=== PATIENT | male | born 1950 | race Caucasian/White ===

== ENCOUNTER 2025-05-17 06:03 | Inpatient (IN) | payer MEDICARE, OTHER, SELFPAY ==
[2025-05-17] VITALS (12 sets, daily range): BP systolic 89–165; BP diastolic 52–92; BMI 19.5; BMI 20.1; BMI 16.5
[2025-05-17 05:05] LABS: Hematocrit 33.1 % (39.0-52.0); Hemoglobin 11.0 g/dL (13.0-18.0); Mean Corp Hgb Conc. 33.2 g/dL (33.0-37.0); Mean Corpuscular Volume 86.0 fL (80.0-94.0); Nucleated Red Blood Cells % 0 % (-); Platelet Count 182 10^3/uL (130-400); Red Cell Dist. Width 13.5 % (11.5-14.5)
--- NOTE | 2025-05-17 05:08 | HPS.HSE ---
Family Physician
-
Family Physician:
Chief Complaint
-
Shortness of breath
History of Present Illness
This is a 75-year-old male with past medical history significant for COPD not on home O2, history of renal stone embolism, dysphagia of the oropharyngeal phase, mild dementia, hyperlipidemia, gait unsteadiness, history of Churg-Alexey, recent
admission at outside hospital with discharge date of 04/09 for acute respiratory failure with hypoxia and pneumonia who now comes to the emergency department with shortness of breath and hypoxia.
According to patient and [facility] records he had been coughing for about 3 days. He appeared to have initially some upper respiratory symptoms including some runny nose and some sore throat. He said he was tested for COVID at the outside
[facility] and it was negative. He did have some wheezing and some shortness of breath. He denies having any fevers or chills. He denies any lower extremity swelling or calf tenderness. He denies having any chest pain nausea or vomiting. He
denies any recent aspiration events. He does report multiple members of his facility with respiratory illnesses recently. He tells me that he was started on antibiotics yesterday and records indicated that he was started on cefuroxime and
Zithromax at 5 PM.
Tonight he called 911 himself because he was complaining of shortness of breath. Had appeared to be in acute respiratory distress. EMS arrived and initially patient was satting 83% on room air. He was given a DuoNeb treatment with oxygenation
improving to 96% but is currently still hypoxic to about 90% on 2 L.
In the emergency department he is afebrile, blood pressure was 140/80 with a pulse of 93 and oxygen saturation of 90% on 2 L. Respiratory rate was 20. ECG shows a normal sinus rhythm at a rate of 94 without any acute ischemic changes. Chest x-ray
show is without any acute infiltrates. CBC was mostly unremarkable with a white count of 9 hemoglobin 11 bed count of 182. Chemistries are unremarkable
Medical History
Past Medical History
Past Medical History: Reports COPD (Not on home O2), Dementia (Mild with behavioral changes), GERD, HTN and Hypercholesterolemia
Additional Past Medical History:
Churg-Alexey
Adjustment disorder with anxiety and depressed mood
Generalized weakness
Past Surgical History: Reports Other
Social History
Tobacco: Former Smoker (Smoked cigarettes from age 15 to age 30)
Alcohol: None
Drug: None
Personal:
Living: [facility]
Family History
Family History: Not pertinent
Allergies / Home Medications
Allergies reflects when Allergies were last updated in [facility].
Home Medications with original date entered in [facility]
Allergy/Medication List:
Allergies
Allergy/AdvReac Type Severity Reaction Status Date / Time
ciprofloxacin Allergy Unknown Unknown Verified 05/17/25 05:08
haloperidol (From Haldol) Allergy Unknown Unknown Verified 05/17/25 05:08
prednisone Allergy Unknown Unknown Verified 05/17/25 05:08
Quetiapine 50 mg tablet, 50 mg p.o. AM and at bedtime
Melatonin 3 mg tablets, 3 mg p.o. at bedtime as needed insomnia
Oxycodone 10 mg tablets, 10 mg p.o. every 8 hours as needed pain
Lorazepam 0.5 mg tablets, 0.5 mg p.o. nightly as needed anxiety
Breztri Aero sphere inhalation aerosol 160 � 9 � 4 0.8 mcg per ACT, 2 inhalation, inhaled orally twice daily
Aspirin 81 mg tablets, 81 mg p.o. daily
Amlodipine 5 mg tablets, 5 mg p.o. daily
Albuterol sulfate nebulization solution 2.5 mg x 3 mL. 1 inhalation orally via nebulizer every 4 hours as needed
Fexo XR 150 mg capsule extended release, 150 mg p.o. daily
Review of Systems
-
History Source: Patient
Constitutional: Reports No Symptoms
EENT: Reports No Symptoms
Respiratory: Reports Cough and Trouble Breathing
Cardiac: Denies Chest Pain
Abdomen/GI: Reports No Symptoms
: Reports No Symptoms
Musculoskeletal: Reports No Symptoms
Skin: Reports No Symptoms
Neurological: Reports No Symptoms
Endocrine: Reports No Symptoms
Hematologic/Lymphatic: Reports No Symptoms
Psych: Reports No Symptoms
Physical Exam
Vital Signs
Vital Signs
Temp Pulse Resp BP Pulse Ox
97.9 F 95 20 139/83 90
05/17/25 04:27 05/17/25 04:53 05/17/25 04:53 05/17/25 04:27 05/17/25 04:27
Physical Exam
General: Well Developed and Respiratory Distress
HEENT: NormoCephalic, Moist mucous membranes, Atraumatic and Oxygen
Respiratory: Clear, Wheezes (Coarse wheezes), Rhonchi, Non Labored Respirations and Clear to Percussion; No Accessory Resp Muscle Use
Cardiac: S1/S2 and Regular Rhythm; No Murmur or Rub
GI: Soft, Non Tender, Non Distended and Normal Bowel Sounds; No Organomegaly
Rectal: Deferred by Provider
Genito-urinary: Deferred by me
Musculoskeletal: No Clubbing, No Cyanosis and No Edema
Skin: No Rash
Neuro: Alert, Oriented (Oriented to person place and year) and Nonfocal/grossly intact
Hematologic/Lymphatic: No Lymphadenopathy
Psych: Calm
Laboratory Results
-
05/17/25 04:47
Data Reviewed
-
Diagnostic Radiology: Image Personally Visualized and interpreted
Medical Tests (Nuc Med, Echo, EKG etc): Image Personally Visualized and interpreted
Lab Data: Labs Reviewed by me
Old Records: Reviewed
Impression/Plan
-
IMPRESSION:
75-year-old with history of COPD,, prior history of Churg-Alexey, dementia, dysphagia, prior history of DVT presenting to the emergency department with worsening shortness of breath and found to be hypoxic after approximately 2 to 3 days of cough
which is currently nonproductive. He improved transiently with neb treatments. Examination shows coarse bilateral wheezes with slightly increased work of breathing.
Chest x-ray
Patient was apparently admitted to outside hospital in March for hypoxic respiratory failure. It appears that he had a pneumonia at that time and has returned to [facility] since.
PLAN:
Hypoxic respiratory failure -No fevers, leukocytosis or consolidation to suspect pneumonia. Likely acute bronchitis in patient with emphysema and prior lung injury. No evidence of congestive heart failure and no prior history of such.
-Admit to [facility]
-Check COVID, check flu, d-dimer
-Patient started antibiotics already, continue with ceftriaxone and Zithromax
-would rather a short course of steroids but patient with unclear allergy/reaction to prednisone
-DuoNebs every 6 hours and every 3 hours as needed
-Oxygen to maintain sats greater than 90%
-Incentive spirometry
- pulmonary consult
-Requested records from [facility]
BNP elevation - Patient w/ indeterminate BNP levels. He has no pulmonary edema. No peripheral edema. BP well controlled and no prior cardiac hx.
- check echo
- will monitor for now with 1 dose of lasix 20mg iv and evaluate
Hypertension
- Continue home patient's amlodipine 5 daily
Dementia/depression anxiety
- Quetiapine 50 mg p.o. daily at at bedtime
� Effexor 150 mg p.o. daily
� Lorazepam 0.5 mg p.o. nightly as needed anxiety
Continue melatonin for insomnia
DVT prophylaxis�Lovenox subcu
CODE STATUS�DNR/DNI
[2025-05-17 05:20] LABS: INR 1.09; PT 14.7 Sec (11.4-14.6)
[2025-05-17 05:21] LABS: APTT 29.5 Sec (23.4-35.0)
[2025-05-17] MEDS: DUONEB 3 ML INH ×5 (05:27→19:21)
[2025-05-17 05:34] LABS: ALT (SGPT) 15 U/L (0-50); AST (SGOT) 28 U/L (17-59); Albumin 4.3 g/dl (3.5-5.0); Alkaline Phosphatase 88 U/L (38-126); Blood Urea Nitrogen 30 mg/dl (9-20); Calcium 9.4 mg/dl (8.4-10.2); Carbon Dioxide 23 mmol/L (22-30); Chloride 109 mmol/L (98-107); Estimated Creatinine Clearance 62 ml/min; Glucose 103 mg/dl (70-99); Lipase 56 U/L (23-300); Potassium 4.2 mmol/L (3.5-5.1); Sodium 140 mmol/L (135-145); Total Protein 6.9 g/dl (6.3-8.2); eGFR > 60.00
[2025-05-17 05:45] LABS: Troponin I < 0.012 ng/ml
--- NOTE | 2025-05-17 05:56 | ED.GENMED ---
History of Present Illness
General
Chief Complaint: Breathing Problem
Source: patient and ambulance crew
Time Seen by Provider: 05/17/25 04:31
Nursing documentation reviewed up to this point in time: agreed with
History of Present Illness
History of Present Illness:
Note:
CHIEF COMPLAINT(S)
Difficulty breathing
HISTORY OF PRESENT ILLNESS
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 He was identified to have difficulty in breathing and a suspected
respiratory infection diagnosed yesterday. The diagnosis was made by a resident physician at his current rehab facility. The patient received a single dose of antibiotics for the infection. Prior to hospital transfer, his oxygen saturation was
recorded at 83% on room air, indicating significant hypoxemia. Emergency Medical Services (EMS) intervened with a nebulized albuterol and ipratropium bromide treatment, improving his oxygen saturation to 96-99%.
PAST MEDICAL AND SURIGICAL HISTORY
History of deep vein thrombosis, dementia, phasia, and past episodes of pneumonia.
EXTERNAL RECORDS REVIEWED
References were made to recent care at [facility] but specific records were not detailed.
PHYSICAL EXAM
General: Alert, no acute distress.
Skin: Warm, dry.
Head: Normocephalic, atraumatic.
Neck: Supple, trachea midline.
Eye, Ears, Nose, and Throat: Patient reports a past significant ear infection treated with intratympanic steroids.
Cardiovascular: Normal peripheral perfusion, No edema.
Respiratory: Respirations are non-labored.
Gastrointestinal: Abdomen nondistended.
Back: Normal range of motion, Normal alignment.
Musculoskeletal: Normal range of motion, normal strength.
Neurological: Alert and oriented to person, place, time, and situation, No focal neurological deficit observed.
Psychiatric: Cooperative, appropriate mood & affect.
PROBLEM LIST
Acute:
1. Difficulty breathing with suspected respiratory infection
2. Hypoxemia
3. Wheezing
Chronic:
1. Dementia
2. Deep vein thrombosis
3. History of recurrent falls
4. Phasia
PLAN
1. Continue the current antibiotic regimen for the respiratory infection.
2. Monitor oxygen saturation levels and administer oxygen therapy as needed to maintain saturation above 92%.
3. Further respiratory treatments with nebulized bronchodilators (albuterol and ipratropium bromide) as required.
4. Neurological assessment due to the history of falls and dementia-related challenges.
5. Coordinate with the rehabilitation facility for continuity of care post discharge.
DIFFERENTIAL DIAGNOSIS
The Differential Diagnosis includes, in no particular order and is not limited to:
1. Acute respiratory infection
2. Chronic obstructive pulmonary disease exacerbation
3. Congestive heart failure
4. Pulmonary embolism
5. Aspiration pneumonia
6. Dementia-related aspiration
7. Pneumothorax
8. Fluid overload
9. Cardiomyopathy
10. Bronchitis
Disposition:
SUMMARY OF ENCOUNTER
The patient is a 75-year-old male seen in the emergency department for difficulty breathing, with a history of dementia. He arrived with EMS who reported an oxygen saturation of 83% on room air. Oxygen therapy was initiated, which improved his
saturation levels.
PLAN
1. Continue oxygen therapy to maintain oxygen saturation levels above 92%.
2. Continue antibiotic treatment for the suspected respiratory infection.
3. Administer nebulized bronchodilator treatments as needed to manage breathing difficulties.
4. Monitor vital signs and respiratory status closely.
MEDICATION RECONCILIATION
1. Oxygen therapy initiated to improve oxygen saturation levels.
2. Continue the current antibiotic regimen for treatment of the respiratory infection.
MEDICAL DECISION MAKING
- Number and Complexity of Problems Addressed:
Chronic conditions affecting care include dementia, deep vein thrombosis, history of recurrent falls, and phasia.
- Data:
Category 1: Tests and documents
Non-emergency department records reviewed: Reviewed patients EMS oxygen saturation records.
Category 2: Assessment requiring an independent historian(s)
Clinical information was obtained through EMS records.
DIAGNOSIS
1. Acute Respiratory Infection (J22)
2. Hypoxemia (R09.02)
3. Dementia (F03.90)
Review of Systems
Review of Systems
Unable to obtain full review of systems at this time due to: dementia
All Other Systems: ROS reviewed and negative except as documented in HPI and ROS
: Reports no symptoms
Phy Exam
Physical Exam
Physical Exam:
.
Scores
Heart Failure Risk
Heart Failure Risk Score: Not Applicable
Course
Orders/Labs/Results
Orders:
Orders
05/17/25 04:33
Electrocardiogram (*1) Urgent
Reason for Study: Other
Other Reason for Exam: Respiratory Distress
Cardiac Monitoring- Treatment ONCE
EKG- Treatment ONCE
IV Insert/Care/Rem.- Treatment PRN
Ipratropium/Albuterol Sulfate [Duoneb] 3 ml INH R NOW ONE
CR Chest - 2 Views Urgent
Comment:
Reason For Exam: respiratory distress
O2 Therapy [RESP] Urgent
Titrate/Wean O2 to maintain O2 sat greater than (%): 93
Special Instructions: TO MAINTAIN CONTINUOUS O2 SATS >/= 93%
Pulse Ox/cont/shift [RESP] Urgent
Quantity: 1
Special Instructions: continuous pulse ox
05/17/25 04:47
C-Reactive Protein Urgent
Comment: ADD ON
Complete Blood Count/With Diff Urgent
Comprehensive Metabolic Panel Urgent
Erythrocyte Sed Rate Urgent
Comment: ADD ON
Lipase Urgent
NT-proBNP Urgent
PTT Urgent
Prothrombin Time Urgent
Troponin I Urgent
05/17/25 05:33
CefTRIAXone [Rocephin] 1,000 mg IV NOW STA
05/17/25 05:36
Admit/Transfer Patient As Directed
Co-Sign Provider:
Level of Care: Inpatient admission
Assign to:: Medical/Surgical
Physician / Group: [facility]
Diagnosis: bronchitis/COPD exacerbation
Reason for Hospitalization: hypoxia
Expected length of stay greater than two midnights?: Yes
ELOS- Estimated Length of Stay in days: 2
I certify the patient meets the requirements for IP care: Yes
PRN Pain Medication Management As Directed
May give lesser potent ordered pain med per pt: Yes
preference::
Protocol:: Medication orders for pain may be administered in a
manner that supports deferring to patient preference
when the pt is:
- Requesting an ordered lesser potent pain medication.
Least to most potent pain medications are defined
as: acetaminophen < NSAID < tramadol < opioids
(morphine, oxycodone, hydromorphone).
- Requesting a lesser dose of the same medication IF
ORDERED.
- Requesting a less intrusive route of administration
if both routes are prescribed by the provider (PO <
IV).
05/17/25 05:37
Code Status As Directed
Resuscitation Status: Do not resuscitate
Based on pt advanced directive or healthcare POA form: Yes
05/17/25 05:38
DNR Bracelet Application ONCE
05/17/25 05:39
Sterile Water [Sterile Water For Injection] 10 ml IV NOW STA
05/17/25 05:50
Furosemide [Lasix] 20 mg IV NOW STA
05/17/25 05:51
COVID-19 Antigen Stat
Source: Nasal Swab
D-Dimer Stat
Influenza A+B Rapid Molecular Stat
JULIA Source: Nasal Swab
Specimen Description:
05/17/25 Breakfast
Regular
At Your Request: Limited, Supplies Packer Required
05/17/25 07:58
Ipratropium/Albuterol Sulfate [Duoneb] 3 ml INH R Q3HPRN PRN
05/17/25 08:00
Ipratropium/Albuterol Sulfate [Duoneb] 3 ml INH R QID
05/17/25 08:55
Acetaminophen [Tylenol] 650 mg PO Q4HPRN PRN
Bisacodyl [Dulcolax] 10 mg RECTAL [id number] PRN
Lorazepam [Ativan] 0.5 mg PO HS PRN
05/17/25 08:55
Echo 2D MMode Color/Doppler Routine
Reason for Study: mod low suspicion for CHF, eval EF.
Consult Notification Routine
Specialty to Notify: Pulmonary
Date consulting provider notified: 05/17/25
Time consulting provider notified: 16:52
Notified:: Provider
Comment: Dr. Lea previously notified, see consultation report
PULMONARY CONSULT Routine
Consulting Provider: Aleksander Aguiar
Was physician already notified: No
Reason for consult: COPD exacerbation vs acute bronchitis. Allergy to steroids
Activity As Directed
Activity Level: Out of Bed-Early Mobility
Intake/ Output As Directed
Frequency: Per unit guidelines
Vital Signs As Directed
Frequency: Per unit guidelines
Pt Eval And Treat Routine
Activity Level: With Assistance
DX Deep Vein Thrombosis Video Routine
05/17/25 09:03
Urinalysis Reflex To Culture Urgent
Date Specimen was Collected: 05/17/25
Time Specimen was Collected: 08:56
05/17/25 11:36
Oxycodone [Roxicodone] 10 mg PO Q8HPRN PRN
05/17/25 11:37
Magnesium Hydroxide [Milk of Magnesia] 30 ml PO HSPRN PRN
05/17/25 11:45
Budesonide/Formoterol 160/4.5 [Symbicort 160/4.5 Mcg Inhaler] 2 puff INH R BID
05/17/25 12:00
Amlodipine [Norvasc] 5 mg PO DAILY
Aspirin Chewable [Low Strength Aspirin] 81 mg PO DAILY
Azithromycin [Zithromax] 500 mg PO DAILY
Docusate W/Senna [Senokot-S] 2 tablet PO BID
Guaifenesin [Mucinex] 600 mg PO Q12
Polyethylene Glycol Powder [Miralax] 17 grams PO DAILY
Quetiapine Fumarate [Seroquel] 50 mg PO DAILY
Venlafaxine Extended Release [Effexor Xr] 150 mg PO DAILY
05/17/25 18:00
Enoxaparin Sodium [Lovenox] 40 mg SC QPM
05/17/25 22:00
Melatonin 3 mg PO HS
Quetiapine Fumarate [Seroquel] 50 mg PO HS
05/18/25 08:00
CefTRIAXone [Rocephin] 1,000 mg IV Q24H
Abnormal Lab Results
05/17/25
04:47
RBC 3.85 L 10^6/uL
(4.70-6.10)
Hgb 11.0 L g/dL
(13.0-18.0)
Hct 33.1 L %
(39.0-52.0)
Absolute Lymphs (auto) 1.1 L 10^3/uL
(1.2-3.4)
Absolute Eos (auto) 1.3 H 10^3/uL
(0-0.7)
Lymphocytes % 11.8 L %
(20.5-51.1)
Eosinophils % 14.2 H %
(0-6)
ESR 52 H mm/hour
(0-20)
PT 14.7 H Sec
(11.4-14.6)
Chloride 109 H mmol/L
(98-107)
BUN 30 H mg/dl
(9-20)
Glucose 103 H mg/dl
(70-99)
C-Reactive Protein 27.10 H mg/L
(0.0-10.00)
05/17/25 04:47
05/17/25 04:47
Vital Signs
Initial and Last Documented VS:
Initial Vital Signs
Temp Pulse Resp BP Pulse Ox
97.9 F 93 20 139/83 90
05/17/25 04:27 05/17/25 04:27 05/17/25 04:27 05/17/25 04:27 05/17/25 04:27
Last Documented Vital Signs
Temp Pulse Resp BP Pulse Ox
97.9 F 99 18 143/95 95
05/19/25 04:10 05/19/25 04:10 05/19/25 04:10 05/19/25 04:10 05/19/25 04:10
*Pulse Oximetry
SaO2: 96
Oxygen Mode of Delivery: Room air
Patient hypoxic: no
*Critical Care Note
Total Time (30-74mins, 75-104mins- exclusive of procedures): Not Applicable
ED Attending Note
-
Portions of this chart may have been created with voice recognition software.� Occasional wrong word or��sound alike� substitutions may have occurred due to the inherent limitations of voice recognition software.
Discharge Plan
Interventions
Interventions:
*Risk Screen - Suicide Last Done: 05/17/25 04:40
*General Assessment Last Done: 05/17/25 04:40
*Neglect/Abuse Screening Last Done: 05/17/25 04:40
*ED- Fall Risk Assessment Last Done: 05/17/25 04:40
*ED COVID-19 Vaccine History Last Done: 05/17/25 04:40
*Nursing Disposition Last Done: 05/17/25 16:32
ED- Cardiac Assessment Last Done: 05/17/25 05:41
ED- Pulmonary Assessment Last Done: 05/17/25 07:09
[2025-05-17] MEDS: ROCEPHIN 1000 MG IV (06:21)
[2025-05-17] MEDS: STERILE WATER FOR INJECTION 10 ML IV (06:23)
[2025-05-17] MEDS: LASIX 20 MG IV (06:23)
[2025-05-17 06:31] LABS: COVID-19 Antigen Negative (Negative)
[2025-05-17 06:47] LABS: D-Dimer 0.47 ug/mlFEU (0.00-0.50)
--- NOTE | 2025-05-17 07:46 | PHANOTE ---
med rec note-called residential for missing medication list, awaiting fax
--- NOTE | 2025-05-17 09:06 | W.PN.HOSP.TC ---
Today's Communication/Plan
-
Echo.
CT chest PE protocol
Lower extremity Doppler
Empiric antibiotics
Decadron
Nebulizers
Assessment / Plan
Assessment / Plan
Impression
Acute on chronic hypoxic respiratory failure.
Essential hypertension.
Dementia/depression
Pulmonary cachexia BMI 19.5
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
Plan
Acute on chronic hypoxic respiratory failure
Differential diagnosis: COPD exacerbation, acute emphysematous bronchitis (x-ray with no focal infiltrates), thromboembolic disease (elevated pro CHF BNP with no prior history of CHF and reported history of lower extremity DVT, not on
anticoagulation on presentation), versus aspiration syndrome, less likely vasculitis, although patient with history of Churg-Alexey vasculitis.
Mild respiratory distress upon presentation with increased work of breathing
Exam with diffuse coarse rhonchi and wheezing
Chest x-ray with hyperinflation negative for cardiomegaly or pulmonary infiltrates.
ECG normal sinus rhythm
D-dimer within normal limits
Noted mild elevation of procedure BNP
COVID-negative
Echo
Lower extremity Doppler
CT chest PE protocol
Sed rate/CRP
Speech and swallow evaluation
Sputum culture if possible
Pulmonary consult
Empiric antibiotics ceftriaxone/Zithromax
Short acting bronchodilators
Start Decadron 10 mg now and 4 mg every 8 hours
PPI
Insulin basal bolus protocol with serial Accu-Cheks
Oxygen supplementation currently at 4 L (2 L at the baseline)
Essential hypertension.
Continue Norvasc
Dementia as per records.
Depression.
Continue Effexor, Seroquel, lorazepam, melatonin
CODE STATUS DNR
DVT prophylaxis Lovenox
Anticipated Discharge: 24 - 48 hours
Subjective/Interval History
-
Date of Service: May 17, 2025
Objective Data
-
Labs:
Laboratory Results
05/17/25
04:47
WBC 9.0
Hgb 11.0 L
Hct 33.1 L
Plt Count 182
PT 14.7 H
INR 1.09
APTT 29.5
Sodium 140
Potassium 4.2
Chloride 109 H
Carbon Dioxide 23
BUN 30 H
Creatinine 0.9
Glucose 103 H
Calcium 9.4
Total Bilirubin 0.5
AST 28
ALT 15
Alkaline Phosphatase 88
Vital Signs:
Vital Signs
Temp Pulse Resp BP Pulse Ox
97.9 F 89 24 145/83 96
05/17/25 04:27 05/17/25 07:00 05/17/25 07:00 05/17/25 07:00 05/17/25 06:00
Physical Exam
-
General: Well Developed and No Apparent Distress
HEENT: Normocephalic, Atraumatic and Moist Mucous Membranes
Respiratory: Wheezes and Rhonchi
Cardiac: Regular Rhythm and S1/S2; Negative Murmur, Rub or Gallop
GI: Soft, Nontender, Nondistended and Normal Bowel Sounds; Negative Organomegaly
Rectal: Deferred by Provider
Musculoskeletal: No Clubbing, No Cyanosis and No Edema
Skin: Negative Rash
Neuro: Nonfocal/Grossly Intact
--- NOTE | 2025-05-17 09:09 | CM ---
Addendum entered by Flores Ruelas 05/17/25 09:18:
Pharmacy verified: [facility] @ [address] [place] [id number]; .
Original Note:
Initial assessment completed w/ Stephanie from [facility]; Bed on Hold
PLOF: facility reported that patient is cognitively impaired but highly functional; needs some assistance w/ personal care; feeds and toilets self; no device w/ ambulation
Plan: return to [facility] when medically stable
[2025-05-17 09:18] LABS: Urine Character Clear (Clear)
[2025-05-17 09:28] LABS: Urine Red Blood Cell 0-2 /HPF (0-2); Urine Squamous Cell 0-2 /LPF (Few)
[2025-05-17 09:56] LABS: C-Reactive Protein 27.10 mg/L (0.0-10.00)
--- NOTE | 2025-05-17 10:13 | W.PN.UPDATE ---
Addendum entered and electronically signed by Aftab Haynes MD 05/17/25 10:16:
Correction will increase Lovenox dose to therapeutic pending CT PE protocol.
Plan is to transition to Eliquis eventually.
Original Note:
Update Note
Progress Note Update
Peripheral Doppler:
There is nonocclusive clot in the proximal and mid left femoral vein, and occlusive clot in the left distal femoral vein and popliteal vein. 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
No sonographic evidence for right lower extremity venous thrombosis.
CT PE protocol pending
Will initiate Eliquis with loading dose
[2025-05-17] MEDS: NORVASC 5 MG PO (12:04)
[2025-05-17] MEDS: PROTONIX 20 MG PO (12:04)
[2025-05-17] MEDS: SENOKOT-S 2 TABLET PO ×2 (12:04→20:37)
[2025-05-17] MEDS: SEROQUEL 50 MG PO ×2 (12:04→21:09)
[2025-05-17] MEDS: ZITHROMAX 500 MG PO (12:04)
[2025-05-17] MEDS: LOW STRENGTH ASPIRIN 81 MG PO (12:04)
[2025-05-17] MEDS: MUCINEX 600 MG PO ×2 (12:04→20:37)
[2025-05-17] MEDS: MIRALAX 17 GRAMS PO (12:05)
[2025-05-17] MEDS: DECADRON 10 MG IV (12:05)
[2025-05-17] MEDS: LOVENOX 60 MG SC (12:05)
[2025-05-17] MEDS: NOVOLOG FLEXPEN-LOW RESISTANCE SC (12:07)
[2025-05-17 12:08] LABS: Glucose - Point of Care 82 mg/dl (70-99)
[2025-05-17] MEDS: SYMBICORT 160/4.5 MCG INHALER INH (12:32)
[2025-05-17] MEDS: EFFEXOR XR 150 MG PO (12:50)
[2025-05-17] MEDS: ROXICODONE 10 MG PO ×2 (12:53→21:13)
--- NOTE | 2025-05-17 13:30 | PTOTSP ---
Speech Therapy Evaluation:
Pt with acute on chronic risk factors of dysphagia. Chronic risk factors include hx of COPD, Dementia, GERD, Dysphagia, and Churg-Alexey Syndrome. Acute risk factors include shortness of breath with chest CT showing bilateral patchy groundglass
opacities (inflammatory vs infectious). At bedside, oropharyngeal swallow appeared grossly functional, however cannot r/o pharyngeal component given above mentioned information.
Recommend:
1. Cautiously continue regular solids and thin liquids
2. Medications as tolerated
3. D/c oral diet if pt demonstrating s/sx of aspiration or if worsening in chest imaging/respiratory status
4. Strict aspiration and reflux precautions
5. SOLID WASTE ANALYST to follow to monitor tolerance of diet and determine if pt would benefit from instrumental assessment
--- NOTE | 2025-05-17 14:47 | CON.PUL ---
Consultation
Consultation Request
Date/Time Consultation Requested: 05/17/2025
Date/Time Consultation Performed: 05/17/2025
Requesting Provider: Dr. taylor
Performing Provider: Dr. Enrique Sanchez
Reason for Consultation: acute HYPOXEMIC RESPIRATORY FAILURE
Medical History
-
History of Present Illness:
75-year-old man with past medical history significant for ?COPDnot on oxygen therapy, history of kidney stones, oropharyngeal dysphagia, mild dementia, hyperlipidemia, gait disturbance, history of Churg-Alexey syndrome, apparently admitted March
of this year to [facility] with hypoxemic respiratory failure and pneumonia.
Presented to the emergency room complaining of shortness of breath and he was found to be hypoxemic at the [facility].
Patient has noted coughing for the last 3 days.
Initially apparently has some upper respiratory symptoms.
Coronavirus testing was negative.
He did report some wheezing and shortness of breath, there is no reports of fever, hemoptysis or purulent sputum production. Denies nausea or vomiting. Denied any choking events.
Apparently multiple residents at the facility are sick with respiratory symptoms.
He was started on oral antibiotics prior to coming to the hospital for excision and azithromycin.
The night of admission patient, no one by himself and he was found to be hypoxemic requiring 2 L of supplemental oxygen.
I was consulted on 05/17/2025 for evaluation.
Patient states that he feels somewhat better.
Remains on low risk for mental option. Reports intermittent coughing.
He does state that he only smoked for about 10 years and not a heavy smoker. I am not sure if history is reliable. He has never taken any inhalers up until recently when he started using inhalers from one of his friends.
Past Medical History
Past Medical History: Other
Social History
Tobacco: Former Smoker ( Smoked cigarretes from [age]y of age.)
Alcohol: None
Drug: None
Personal: Single
Living: [facility]dc
Employment: Not Employed
Family History
Family History: Reviewed & Not Pertinent
Allergies / Home Medications
Allergies
Allergy/AdvReac Type Severity Reaction Status Date / Time
ciprofloxacin Allergy Unknown Unknown Verified 05/17/25 05:08
haloperidol (From Haldol) Allergy Unknown Unknown Verified 05/17/25 05:08
prednisone Allergy Unknown Unknown Verified 05/17/25 05:08
Home Medications
�Medication �Instructions �Recorded �Confirmed �Last Taken �Type
acetaminophen 325 mg tablet 650 mg PO Q4HPRN PRN mild pain 05/17/25 05/17/25 Unknown History
(Tylenol)
albuterol sulfate 2.5 mg/3 mL 2.5 mg inhalation R Q4HPRN PRN sob 05/17/25 05/17/25 Unknown History
(0.083 %) solution for nebulization
amlodipine 5 mg tablet (Norvasc) 5 mg PO DAILY 05/17/25 05/17/25 Unknown History
aspirin 81 mg tablet,delayed 81 mg PO DAILY 05/17/25 05/17/25 Unknown History
release
azithromycin 500 mg tablet 500 mg PO DAILY@1200 05/17/25 05/17/25 Unknown History
bisacodyl 10 mg rectal suppository 10 mg ID [id number] PRN if no bm aftr 05/17/25 05/17/25 Unknown History
(Dulcolax (bisacodyl)) mom
budesonide 160 mcg-glycopyr 9 2 inh inhalation R BID 05/17/25 05/17/25 Unknown History
mcg-formot 4.8 mcg/actuation HFA
inhaler (Breztri Aerosphere)
cefuroxime axetil 500 mg tablet 500 mg PO BID 05/17/25 05/17/25 Unknown History
lorazepam 0.5 mg tablet 0.5 mg PO HS 05/17/25 05/17/25 Unknown History
magnesium hydroxide 400 mg/5 mL 2,400 mg PO [id number] PRN if no bm 05/17/25 05/17/25 Unknown History
oral suspension (Milk of Magnesia) by 3rd day
melatonin 3 mg tablet 3 mg PO HS 05/17/25 05/17/25 Unknown History
oxycodone 10 mg tablet 10 mg PO Q8HPRN PRN severe pains 05/17/25 05/17/25 Unknown History
polyethylene glycol 3350 17 gram 17 g PO DAILY 05/17/25 05/17/25 Unknown History
oral powder packet (Miralax)
quetiapine 50 mg tablet (Seroquel) 50 mg PO BID 05/17/25 05/17/25 Unknown History
sennosides 8.6 mg tablet (senna) 17.2 mg PO BID 05/17/25 05/17/25 Unknown History
sodium phosphates 19 gram-7 118 ml ID [id number] PRN if no bm 05/17/25 05/17/25 Unknown History
gram/118 mL enema (Fleet Enema) aftr dulcolax
venlafaxine 150 mg 150 mg PO DAILY 05/17/25 05/17/25 Unknown History
capsule,extended release 24 hr
(Effexor XR)
Review of Systems
-
History Source: Patient
All other systems: Negative unless noted
Vitals / Labs / Diagnostic Testing
Vital Signs
Temp Pulse Resp BP Pulse Ox
98.2 F 101 19 155/92 97
05/17/25 10:18 05/17/25 13:00 05/17/25 13:00 05/17/25 10:56 05/17/25 13:15
Lab Data
05/17/25 04:47
05/17/25 04:47
Laboratory Results
05/17/25
04:47
PT 14.7 H
INR 1.09
APTT 29.5
Microbiology
05/17/25 05:51 Nasal Swab Influenza Types A & B (AIDEN) - Final
Negative for Influenza A & B, NAAT
Negative results must be combined with clinical observations
and patient history.
Nucleic Acid Amplification test (NAAT)performed on the
[employer] NOW platform.
Diagnostic Testing:
Physical Exam
-
HEENT: Normocephalic
Cardiovascular: S1/S2
Respiratory: Wheeze ( Bilateral expiratory)
GI: Soft and Non Distended
Neurology: Awake, Alert and Oriented
Skin: Warm
General: Comfortable
Assessment
-
75-year-old man with past medical history noted. Distant history of smoking and quit at age 30. He is labeled as having COPD. No. Prior pulmonary function testing available. Apparently admitted to [facility] with pneumonia and
respiratory failure 03/2025. No records available. Comes back with 3 day history of increased cough, shortness of breath. Patient called 911 from his facility the night of admission due to significant shortness of breath. Multiple residents are
sick with upper respiratory symptoms. He was found to be hypoxemic and In the hospital for further evaluation.
Acute hypoxemic respiratory failure requiring 3 L of supplemental oxygen
Suspect asthmatic bronchitis versus underlying bronchial asthma
CT chest 05/17/2025 reviewed revealed minimal patchy groundglass abnormalities in upper lobes. No evidence for pulmonary embolism. No pleural effusion.
Peripheral eosinophilia
Left lower extremity DVT
Conditions present prior to admission:
Mild dementia
Hypertension
Anxiety
longterm resident
Insomnia melatonin
Former smoker from age 15 to age 30
? COPD-no PFTs available. Patient does not follow up with pulmonary doctors.( he states that he was using inhaler from a friend Jeffery)
Assessment and plan:
-
Suspect this is not COPD exacerbation-no emphysema on CAT scan. No evidence for hyperinflation. Smoking history not extensive.
With peripheral eosinophilia suspect more related to possible allergic asthma-No details available.
Ovifxcd-ckla-bqjupai-d-kcbbomhsn-fa-Churg-Alexey currently not on any therapy. No details available.
Bronchospastic on exam on my evaluation
-
At the moment suspect acute exacerbation of possibly asthma versus asthmatic bronchitis-unclear whether his persistent symptoms after discharge from [facility] versus aspiration event versus a new infection from his [facility] as multiple
other residents per patient are sick.
Bronchospastic on exam
Continue IV corticosteroids as you are next and continued nebulizer therapy Duoneb/Pulmicort. Would discharge patient on this regimen as I doubt he is able to perform adequate inhaler maneuver.
Would recommend outpatient pulmonary follow-up for further evaluation and determine if maintenance inhalers are required.
Continue antibiotics for now( Ceftriaxone/azithro) -if cultures negative may complete 5 days of azithromycin only.
-
Patchy upper lobe groundglass opacity is either resolving pneumonia or viral in etiology.
This will need follow-up in the outpatient setting.
-
Left lower extremity DVT. On anticoagulation per primary team.
No evidence for pulmonary embolism.
-
On low rate supplemental oxygen 2 to 3 L in the emergency room. Not in distress. Able to speak in full sentences
Wean down as able
Incentive spirometer
-
Aspiration precautions
Speech evaluation during this hospital stay.
-
-
Data reviewed:
CT angiogram of the chest 05/17/2025: No evidence for pulmonary embolism. Patchy areas of groundglass bilaterally upper lobe predominant. Likely inflammatory or infectious. No mediastinal lymph nodes. No pleural effusion.
Lower extremity Dopplers 05/17/2025:There is nonocclusive clot in the proximal and mid left femoral vein, and occlusive clot in the left distal femoral vein and popliteal vein. 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
patent.
No sonographic evidence for right lower extremity venous thrombosis.
[2025-05-17 17:21] LABS: Glucose - Point of Care 266 mg/dl (70-99)
[2025-05-17] MEDS: DECADRON 4 MG IV (17:35)
[2025-05-17] MEDS: NOVOLOG FLEXPEN-LOW RESISTANCE 3 UNITS SC (17:37)
[2025-05-17] MEDS: SYMBICORT 160/4.5 MCG INHALER 2 PUFF INH (19:21)
[2025-05-17] MEDS: MELATONIN 3 MG PO (21:09)
[2025-05-17 21:36] LABS: Glucose - Point of Care 204 mg/dl (70-99)
[2025-05-18] MEDS: DECADRON 4 MG IV ×2 (00:21→09:08)
[2025-05-18] MEDS: LOVENOX 60 MG SC (00:22)
[2025-05-18 07:44] VITALS: BP 122/76
[2025-05-18 08:08] LABS: Glucose - Point of Care 166 mg/dl (70-99)
[2025-05-18] MEDS: DUONEB 3 ML INH ×2 (08:28→11:48)
[2025-05-18] MEDS: SYMBICORT 160/4.5 MCG INHALER 2 PUFF INH (08:28)
[2025-05-18] MEDS: LOW STRENGTH ASPIRIN 81 MG PO (09:00)
[2025-05-18] MEDS: SEROQUEL 50 MG PO ×2 (09:00→20:54)
[2025-05-18] MEDS: PROTONIX 20 MG PO (09:00)
[2025-05-18] MEDS: ZITHROMAX 500 MG PO (09:01)
[2025-05-18] MEDS: SENOKOT-S 2 TABLET PO ×2 (09:01→20:11)
[2025-05-18] MEDS: MUCINEX 600 MG PO ×2 (09:03→20:11)
[2025-05-18] MEDS: NORVASC 5 MG PO (09:06)
[2025-05-18] MEDS: NOVOLOG FLEXPEN-LOW RESISTANCE 1 UNITS SC (09:08)
[2025-05-18] MEDS: MIRALAX 17 GRAMS PO (09:08)
[2025-05-18] MEDS: EFFEXOR XR 150 MG PO (09:16)
[2025-05-18] MEDS: ROCEPHIN 1000 MG IV (09:16)
[2025-05-18] MEDS: STERILE WATER FOR INJECTION 10 ML IV (09:17)
[2025-05-18] MEDS: ELIQUIS 10 MG PO (09:18)
[2025-05-18 09:19] LABS: Blood Urea Nitrogen 34 mg/dl (9-20); Calcium 9.7 mg/dl (8.4-10.2); Carbon Dioxide 28 mmol/L (22-30); Chloride 104 mmol/L (98-107); Estimated Creatinine Clearance 47 ml/min; Glucose 132 mg/dl (70-99); Potassium 4.3 mmol/L (3.5-5.1); Sodium 141 mmol/L (135-145); eGFR > 60.00
[2025-05-18 09:55] LABS: Hematocrit 33.7 % (39.0-52.0); Hemoglobin 11.1 g/dL (13.0-18.0); Mean Corp Hgb Conc. 32.9 g/dL (33.0-37.0); Mean Corpuscular Volume 85.1 fL (80.0-94.0); Nucleated Red Blood Cells % 0 % (-); Platelet Count 231 10^3/uL (130-400); Red Cell Dist. Width 13.2 % (11.5-14.5)
[2025-05-18 10:52] LABS: Glycohemoglobin (HgbA1c) 5.2 % (4.0-5.6)
[2025-05-18 11:43] LABS: Glucose - Point of Care 216 mg/dl (70-99)
[2025-05-18] MEDS: NOVOLOG FLEXPEN-LOW RESISTANCE 2 UNITS SC (12:14)
--- NOTE | 2025-05-18 12:49 | W.PN.HOSP.TC ---
Today's Communication/Plan
-
Transition to Eliquis
Decrease steroids
Continue with bronchodilators
Assessment / Plan
Assessment / Plan
Impression
Acute on chronic hypoxic respiratory failure.
Left lower extremity DVT
Essential hypertension.
Dementia/depression
Pulmonary cachexia BMI 19.5
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
Plan
Acute on chronic hypoxic respiratory failure
Differential diagnosis: COPD exacerbation, acute emphysematous bronchitis (x-ray with no focal infiltrates), thromboembolic disease (elevated pro CHF BNP with no prior history of CHF and reported history of lower extremity DVT, not on
anticoagulation on presentation), versus aspiration syndrome, less likely vasculitis, although patient with history of Churg-Alexey vasculitis.
Mild respiratory distress upon presentation with increased work of breathing
Exam with diffuse coarse rhonchi and wheezing
Chest x-ray with hyperinflation negative for cardiomegaly or pulmonary infiltrates.
ECG normal sinus rhythm
D-dimer within normal limits
Noted mild elevation of procedure BNP
COVID-negative
Echo EF of 61%. Normal diastolic function. Normal right ventricular size and function. Normal left ventricular size and function. Mild tricuspid regurgitation. PASP 25 mmHg.
Lower extremity Doppler positive for clot
CT chest PE protocol negative for pulmonary embolism
Transition patient to Lovenox to therapeutic dose of Eliquis
Sed rate/CRP
Speech and swallow evaluation okay for regular diet
Sputum culture if possible
Pulmonary consult
Empiric antibiotics ceftriaxone/Zithromax
Short acting bronchodilators
Decrease steroids to twice daily dosing
PPI
Insulin basal bolus protocol with serial Accu-Cheks
Currently seen on room air
Essential hypertension.
Continue Norvasc
Dementia as per records.
Depression.
Continue Effexor, Seroquel, lorazepam, melatonin
Decrease steroids
CODE STATUS DNR
DVT prophylaxis Lovenox
Called spouse to update no response left voicemail for call back.
Anticipated Discharge: > 48 hours
Subjective/Interval History
-
Date of Service: May 18, 2025
state of mild shortness of breath
Mildly confused
Objective Data
-
Labs:
Laboratory Results
05/18/25 05/18/25
07:32 09:00
WBC 8.1
Hgb 11.1 L
Hct 33.7 L
Plt Count 231 D
Sodium 141
Potassium 4.3
Chloride 104
Carbon Dioxide 28
BUN 34 H
Creatinine 1.0
Glucose 132 H
Calcium 9.7
Vital Signs:
Vital Signs
Temp Pulse Resp BP Pulse Ox
97.9 F 92 16 122/76 95
05/18/25 07:44 05/18/25 11:58 05/18/25 11:58 05/18/25 07:44 05/18/25 11:58
I&O
05/17/25 05/18/25 05/19/25
06:59 06:59 06:59
Intake Total 240 / 240
Output Total 650 / 650
Balance -410 / -410
Physical Exam
-
General: Well Developed and No Apparent Distress
HEENT: Normocephalic, Atraumatic and Moist Mucous Membranes
Respiratory: Wheezes and Rhonchi
Cardiac: Regular Rhythm and S1/S2; Negative Murmur, Rub or Gallop
GI: Soft, Nontender, Nondistended and Normal Bowel Sounds; Negative Organomegaly
Rectal: Deferred by Provider
Musculoskeletal: No Clubbing, No Cyanosis and No Edema
Skin: Negative Rash
Neuro: Awake and Nonfocal/Grossly Intact
Psych: Apparent Dementia
Data Reviewed
-
Total Time Spent with Patient (in minutes): 55
--- NOTE | 2025-05-18 13:11 | W.PN.UPDATE ---
Update Note
Progress Note Update
Discussed patient case in detail with spouse Vania. Per spouse, patient was on hospice and [facility]. Patient has a history of COPD and hypoxemia. Patient has known history of DVT. Patient has history of frontotemporal dementia with manic
symptoms at times. States steroids makes his symptoms worse. Spouse stated she does not want aggressive measures. They have discussed in the past and per patient and family wishes patient needs to be on comfort measures. Patient spouse requested
hospice and she want patient to go [facility] to [facility] hosp[facility]. She does not want patient to receive IV steroids, IV antibiotics, anticoagulation, additional aggressive medication and treatment. Spouse wants patient to be comfortable and she
agreed for comfort measures including morphine and Ativan. She was requesting if patient can return to [facility] on hospice. Spouse confirmed CODE STATUS DNR/DNI.
--- NOTE | 2025-05-18 13:33 | W.PN.PUL3 ---
Today's Communication / Plan
-
Per conversation with the hospitalist on the patient's , patient is now transition to comfort care with hospice evaluation pending
Stop all medications unless tailored for comfort
No additional recommendations at this time. Pulmonary service will now sign off. Please call back with any questions or concerns.
Assessment
-
75-year-old man with past medical history noted. Distant history of smoking and quit at age 30. He is labeled as having COPD. No. Prior pulmonary function testing available. Apparently admitted to [facility] with pneumonia and
respiratory failure 03/2025. No records available. Comes back with 3 day history of increased cough, shortness of breath. Patient called 911 from his facility the night of admission due to significant shortness of breath. Multiple residents are
sick with upper respiratory symptoms. He was found to be hypoxemic and In the hospital for further evaluation.
Acute hypoxemic respiratory failure requiring 3 L of supplemental oxygen
Suspect asthmatic bronchitis versus underlying bronchial asthma
CT chest 05/17/2025 reviewed revealed minimal patchy groundglass abnormalities in upper lobes. No evidence for pulmonary embolism. No pleural effusion.
Peripheral eosinophilia
Left lower extremity DVT
Conditions present prior to admission:
Dementia
Hypertension
Anxiety
senior living resident
Insomnia
Former smoker from age 15 to age 30
? COPD-no PFTs available. Patient does not follow up with pulmonary doctors.( he states that he was using inhaler from a friend Jeffery)
Assessment and plan:
-
Suspect this is not COPD exacerbation-no emphysema on CAT scan. No evidence for hyperinflation. Smoking history not extensive.
With peripheral eosinophilia suspect more related to allergic asthma-No details available.
Uzvywnk-yees-ddssqdt-r-fyxjhybyg-ex-Churg-Alexey currently not on any therapy. No details available.
Bronchospastic on exam on my evaluation
-
Patient had been on steroids, nebulized bronchodilators and antibiotics, however hospitalist spoke in detail to the patient's spouse and the patient's has requested hospice evaluation with [facility].
In the interim, patient is being transitioned to comfort care
Stop all medications unless tailored for comfort
No additional recommendations at this time. Pulmonary service will now sign off. Thank you for allowing us to be involved in the care of this patient. Please call back with any questions or concerns.
-
-
Data reviewed:
CT angiogram of the chest 05/17/2025: No evidence for pulmonary embolism. Patchy areas of groundglass bilaterally upper lobe predominant. Likely inflammatory or infectious. No mediastinal lymph nodes. No pleural effusion.
Lower extremity Dopplers 05/17/2025:There is nonocclusive clot in the proximal and mid left femoral vein, and occlusive clot in the left distal femoral vein and popliteal vein. 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
patent.
No sonographic evidence for right lower extremity venous thrombosis.
Total time spent today was 27 minutes for this encounter. Time includes reviewing laboratory test/imaging results, reviewing pertinent medical records, obtaining and reviewing medical history, performing an appropriate exam, ordering medications,
tests and procedures. Time also includes documentation of this encounter, coordinating patient care and communicating with other healthcare professionals. Total time does not include separately billed tests performed on this date of service.
Subjective Data
-
Date of Service:
Date of Service: May 18, 2025
Chief Complaint: Pulmonary Follow Up
Subjective:
Patient was seen and evaluated today at bedside (late note entry). He endorses shortness of breath and having coughing fits. Currently on room air breathing comfortably at rest.
Review of Systems
General: Other (Unobtainable given patient's history of dementia)
Objective Data
Data Reviewed
Vital Signs / I&O / Oxygen:
Vital Signs
Temp Pulse Resp BP Pulse Ox
97.9 F 90 18 122/76 95
05/18/25 07:44 05/18/25 07:44 05/18/25 08:32 05/18/25 07:44 05/18/25 09:02
Intake and Output
05/17/25 05/18/25 05/19/25
06:59 06:59 06:59
Intake Total 240 / 240
Output Total 650 / 650
Balance -410 / -410
SaO2 95
Nasal Cannula flow liters per 3
minute
Physical Exam
General: Respiratory Distress (negative), Comfortable and Chills (negative)
HEENT: Normocephalic and Anicteric
Cardiovascular: Rub (negative), Peripheral Edema (Trace LIT) and Other (Distant cardiac sounds)
Respiratory: Wheeze (During expiration), Crackles (negative), Rhonchi (Bilaterally) and Non-Labored Respirations
GI: Soft, Non Distended, Non Tender and Normal Bowel Sounds
Neurology: Awake, Alert and Tremors (negative)
Skin: Warm, Dry, Cyanosis (negative) and Jaundice (negative)
Labs/Micro/Reports
Microbiology
05/17/25 05:51 Nasal Swab Influenza Types A & B (AIDEN) - Final
Negative for Influenza A & B, NAAT
Negative results must be combined with clinical observations
and patient history.
Nucleic Acid Amplification test (NAAT)performed on the
[employer] NOW platform.
--- NOTE | 2025-05-18 14:30 | CM ---
Addendum entered by Flores Ruelas 05/18/25 14:41:
Left a voice mail for regarding discharge plan
Original Note:
Per Attending, Patient's spouse wants Hospice @ [facility] when he returns to facility; he can return late tomorrow if facility can support request; spouse lives 2 hours away; wants to see him first.
Referral sent to facility via [facility]; also left a voice mail for Stephanie in Admissions to call to discuss when request can be accommodated
Plan: Return to [facility] w/ Hospice when services can be coordinated
[2025-05-18 14:42] VITALS: BP 126/61
[2025-05-18 17:12] LABS: Glucose - Point of Care 118 mg/dl (70-99)
[2025-05-18] MEDS: ROXICODONE 10 MG PO (18:08)
[2025-05-18] MEDS: MORPHINE SULFATE 2 MG IV (20:11)
[2025-05-18] MEDS: MELATONIN 3 MG PO (20:54)
[2025-05-18 23:06] VITALS: BP 101/64
[2025-05-19] MEDS: MORPHINE SULFATE 2 MG IV ×5 (04:00→21:11)
[2025-05-19 04:10] VITALS: BP 143/95
--- NOTE | 2025-05-19 06:19 | PTCARENOTE ---
Pt went to bathroom with PCT present. Pt suddenly became unresponsive. PCT pressed bathroom call woody for help. PCT held pt upwards so patient would not fall. RN quickly arrived in room and helped hold pt upwards to take to take to bed. Pt did not
fall as RN and PCT were quick to help keep patient safe. Pt remained unresponsive for approximately 30 seconds then woke up suddenly, yelling at RN. VS WNL, REPAIR ARMATURE WINDER notified.
--- NOTE | 2025-05-19 06:57 | W.PN.UPDATE ---
Update Note
Progress Note Update
Patient was ambulated to bathroom overnight, sat down on toilet and became unresponsive. Returned to bed with 2 assist where he promptly became responsive, oriented to baseline and VSS. Likely vaso vagal response. Plan is for him to go back to
[facility] on hospice eventuallly. Will observe.
[2025-05-19 08:16] VITALS: BP 116/59
[2025-05-19] MEDS: SEROQUEL 50 MG PO ×2 (09:00→21:05)
[2025-05-19] MEDS: SENOKOT-S 2 TABLET PO ×2 (09:00→20:02)
[2025-05-19] MEDS: MUCINEX 600 MG PO ×2 (09:01→20:02)
[2025-05-19] MEDS: MIRALAX 17 GRAMS PO (09:02)
--- NOTE | 2025-05-19 10:17 | CM ---
Addendum entered by Flores Ruelas 05/19/25 12:25:
Met with and patient at bedside; is agreeable with discharge plan
IMM benefit explained; form signed
Original Note:
Plan: per discussion w/ Stephanie @ [facility], patient will return to facility tomorrow via ambulance w/ Consult for Hospice re-evaluation
[2025-05-19] MEDS: LEVSIN ORAL DROPS 0.125 MG SL (11:13)
--- NOTE | 2025-05-19 11:51 | W.PN.HOSP.TC ---
Addendum entered and electronically signed by Liu Le MD 05/19/25 13:23:
Discussed with spouse at bedside in detail. She was appreciative for updates. She wants to continue with comfort measures and then transition to hospice.
Original Note:
Today's Communication/Plan
-
Continue with comfort measures
Assessment / Plan
Assessment / Plan
Impression
Acute on chronic hypoxic respiratory failure.
Chronic left lower extremity DVT
Essential hypertension.
Severe frontotemporal dementia
Depression
Pulmonary cachexia BMI 19.5
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
Plan
Started on comfort measures on 05/18/2025
Discussed with spouse on 05/18/25. Spouse stated that patient is DNR/DNI. Patient was admitted to [facility] where he was diagnosed with lower extremity DVT and was placed on anticoagulation. Spouse stated patient with advanced dementia and
does not want aggressive medical management. Stated per prior discussion she wants patient to be comfort measures and discharged back to [facility] on hospice. She understand she understand patient not being on anticoagulation steroids
antibiotics CTC. She wants patient to be comfortable and on comfort measures as per previous discussion and wishes. Comfort measure orders placed.
Discussed with case management for patient to return to [facility] on hospice measures. Await placement.
Anticipated Discharge: Within 24 hours
Subjective/Interval History
-
Date of Service: May 19, 2025
Mild dyspnea and coughing and increased secretion
Objective Data
-
Vital Signs:
Vital Signs
Temp Pulse Resp BP Pulse Ox
98 F 86 18 116/59 97
05/19/25 08:16 05/19/25 08:16 05/19/25 08:16 05/19/25 08:16 05/19/25 08:16
I&O
05/18/25 05/19/25 05/20/25
06:59 06:59 06:59
Intake Total 240 / 240 680 / 680
Output Total 650 / 650
Balance -410 / -410 680 / 680
Physical Exam
-
HEENT: Normocephalic and Atraumatic
Respiratory: Wheezes and Rhonchi
Cardiac: Regular Rhythm and S1/S2; Negative Murmur, Rub or Gallop
GI: Soft, Nontender, Nondistended and Normal Bowel Sounds; Negative Organomegaly
Rectal: Deferred by Provider
Musculoskeletal: No Clubbing, No Cyanosis and No Edema
Skin: Negative Rash
Psych: Apparent Dementia
[2025-05-19 15:41] VITALS: BP 132/71
[2025-05-19] MEDS: MELATONIN 3 MG PO (21:05)
[2025-05-19] MEDS: ATIVAN 0.5 MG PO (21:05)
[2025-05-19 23:24] VITALS: BP 136/71
[2025-05-20] MEDS: MORPHINE SULFATE 2 MG IV (04:26)
[2025-05-20 07:50] VITALS: BP 124/64
[2025-05-20] MEDS: MIRALAX 17 GRAMS PO (08:17)
[2025-05-20] MEDS: MUCINEX 600 MG PO (08:17)
[2025-05-20] MEDS: SENOKOT-S 2 TABLET PO (08:17)
[2025-05-20] MEDS: SEROQUEL 50 MG PO (08:18)
[2025-05-20] MEDS: ROXICODONE 10 MG PO (08:20)
--- NOTE | 2025-05-20 11:37 | W.DS.TRANS ---
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
-
Discharge Instructions:
Discharge Diagnosis/Procedures Acute on chronic respiratory failure
Diet Regular
Instructions:
Stand-Alone Forms:
Changes to Home Medications: Yes
Discharge Medications:
DC Medications w/original date entered in [facility]
acetaminophen 325 mg tablet (Tylenol) 650 mg PO Q4HPRN PRN mild pain 05/17/25
albuterol sulfate 2.5 mg/3 mL (0.083 %) solution for nebulization 2.5 mg inhalation R Q4HPRN PRN sob 05/17/25
bisacodyl 10 mg rectal suppository (Dulcolax (bisacodyl)) 10 mg AL [id number] PRN if no bm aftr mom 05/17/25
budesonide 160 mcg-glycopyr 9 mcg-formot 4.8 mcg/actuation HFA inhaler (Breztri Aerosphere) 2 inh inhalation R BID 05/17/25
magnesium hydroxide 400 mg/5 mL oral suspension (Milk of Magnesia) 2,400 mg PO [id number] PRN if no bm by 3rd day 05/17/25
melatonin 3 mg tablet 3 mg PO HS 05/17/25
polyethylene glycol 3350 17 gram oral powder packet (Miralax) 17 g PO DAILY 05/17/25
quetiapine 50 mg tablet (Seroquel) 50 mg PO BID 05/17/25
sennosides 8.6 mg tablet (senna) 17.2 mg PO BID 05/17/25
sodium phosphates 19 gram-7 gram/118 mL enema (Fleet Enema) 118 ml AL [id number] PRN if no bm aftr dulcolax 05/17/25
venlafaxine 150 mg capsule,extended release 24 hr (Effexor XR) 150 mg PO DAILY 05/17/25
hyoscyamine sulfate 0.125 mg/mL oral drops 0.125 mg sublingual Q4HPRN PRN excessive secretions #20 mL 05/20/25
lorazepam 0.5 mg tablet 0.5 mg PO HS #10 tabs 05/20/25
oxycodone 10 mg tablet 10 mg PO Q8HPRN PRN severe pains #14 tabs 05/20/25
Home Medication Changes
Discharge with transition to hospice at [facility]
Pending Results: No
--- NOTE | 2025-05-20 12:01 | CM ---
CM reviewed chart, patient seen bedside, for discharge today.
Patient plan return to [facility] with re-eval for Hospice- updated clinicals sent via [facility].
Patient scheduled for 2:30 p.m. ambulance transport, Kitty, liaison, aware.
Call to patients , provided update.
Plan; return to [facility] with Hospice eval, 2:30 p.m. ambulance transport
[facility]
Report: [phone], fourth floor
[2025-05-20 12:13] VITALS: BMI 16.5
== END 2025-05-20 14:55 | DRG 189 ==
LOC: 4 WEST ACU 06:03
PROVIDERS: Hospitalist; ADMITTING PHYSICIAN Internal Medicine; ATTENDING PHYSICIAN Internal Medicine; EMERGENCY PHYSICIAN Student in an Organized Health Care Education/Training Program; FAMILY PHYSICIAN Internal Medicine; OTHER PHYSICIAN Internal Medicine Critical Care Medicine
DX: J96.21 Acute and chronic respiratory failure with hypoxia (principal); R64 Cachexia; Z68.1 Body mass index [BMI] 19.9 or less, adult; M30.1 Polyarteritis with lung involvement [Churg-Strauss]; F03.A3 Unspecified dementia, mild, with mood disturbance; I82.512 Chronic embolism and thrombosis of left femoral vein; I82.532 Chronic embolism and thrombosis of left popliteal vein; I10 Essential (primary) hypertension; Z66 Do not resuscitate; G47.00 Insomnia, unspecified; G31.09 Other frontotemporal neurocognitive disorder; G89.29 Other chronic pain; D72.10 Eosinophilia, unspecified; E78.5 Hyperlipidemia, unspecified; F43.23 Adjustment disorder with mixed anxiety and depressed mood; L89.621 Pressure ulcer of left heel, stage 1; L89.611 Pressure ulcer of right heel, stage 1; Z11.52 Encounter for screening for COVID-19; Z51.5 Encounter for palliative care; Z79.82 Long term (current) use of aspirin; Z79.899 Other long term (current) drug therapy; Z87.442 Personal history of urinary calculi; Z87.891 Personal history of nicotine dependence
CPT/HCPCS: 71046; 71275; 80048; 80053; 81003; 81015; 82962; 83036; 83690; 83880; 84484; 85025; 85379; 85610; 85652; 85730; 86140; 87070; 87502; 87811; 92610; 93005; 93306; 93970; 94640; 94760; 99285; Q9967